=== PATIENT | female | born 1965 | race Caucasian/White ===

== ENCOUNTER 2018-06-04 20:42 | Emergency (ER) | payer OTHER ==
[~2018-06-04] VITALS: Ht 149.9 cm; Wt 65.8 kg
[2018-06-04] MEDS ORDERED: LAMICTAL150 MG (21:02)
== END 2018-06-04 22:40 | disposition home or self-care (01) ==
LOC: ER 20:42
DX: S50.11XA Contusion of right forearm, initial encounter (principal); V49.9XXA Car occupant (driver) (passenger) injured in unspecified traffic accident, initial encounter; Y93.89 Activity, other specified; Y92.488 Other paved roadways as the place of occurrence of the external cause; Y99.8 Other external cause status

== ENCOUNTER 2019-08-31 16:02 | Emergency (ER) | payer OTHER ==
[~2019-08-31] VITALS: Ht 157.5 cm; Wt 59.0 kg
[~2019-08-31 16:02] MED LIST: LAMICTAL150 MG
[2019-08-31] MEDS ORDERED: LEVOTHYROXINE25 MCG (16:30)
== END 2019-08-31 20:08 | disposition home or self-care (01) ==
LOC: ER 16:02
DX: J15.7 Pneumonia due to Mycoplasma pneumoniae (principal); R51 Headache; J32.8 Other chronic sinusitis

== ENCOUNTER 2020-02-14 19:52 | Emergency (ER) | payer OTHER ==
[~2020-02-14] VITALS: Ht 160 cm; Wt 65.8 kg
[~2020-02-14 19:52] MED LIST changes: +LEVOTHYROXINE25 MCG
== END 2020-02-15 00:13 | disposition home or self-care (01) ==
LOC: ER 19:52
DX: R51 Headache (principal); R10.9 Unspecified abdominal pain; E86.0 Dehydration

== ENCOUNTER 2021-10-15 19:49 | Emergency (ER) | payer OTHER ==
[~2021-10-15] VITALS: Ht 149.9 cm; Wt 68.9 kg
[2021-10-15] MEDS ORDERED: SYNTHROID50 MCG PO (20:13)
[2021-10-15] MEDS ORDERED: NAPROXEN500 MG PO (22:58)
[2021-10-15] MEDS ORDERED: MUCINEX DM ER1 EAC1 PO (22:58)
[2021-10-15] MEDS ORDERED: AZITHROMYCIN500 MG PO (22:58)
[2021-10-15] MEDS ORDERED: FLONASE ALLERG9.9 ML NASAL (22:58)
== END 2021-10-15 23:01 | disposition home or self-care (01) ==
LOC: ER 19:49
DX: J06.9 Acute upper respiratory infection, unspecified (principal); J32.9 Chronic sinusitis, unspecified; E03.9 Hypothyroidism, unspecified

== ENCOUNTER 2022-08-02 09:32 | Emergency (ER) | payer OTHER ==
[~2022-08-02] VITALS: Ht 149.9 cm; Wt 68.0 kg
[~2022-08-02 09:32] MED LIST changes: +AZITHROMYCIN500 MG PO; +FLONASE ALLERG9.9 ML NASAL; +MUCINEX DM ER1 EAC1 PO; +NAPROXEN500 MG PO; +SYNTHROID50 MCG PO
[2022-08-02] MEDS ORDERED: CELEXA10 MG (09:37)
== END 2022-08-02 11:13 | disposition home or self-care (01) ==
LOC: ER 09:32
DX: M79.602 Pain in left arm (principal)

== ENCOUNTER 2023-03-23 12:09 | Emergency (ER) | payer OTHER ==
[~2023-03-23] VITALS: Ht 121.9 cm; Wt 70.3 kg
[~2023-03-23 12:09] MED LIST changes: +CELEXA10 MG
== END 2023-03-23 16:42 | disposition home or self-care (01) ==
LOC: ER 12:09
DX: R42 Dizziness and giddiness (principal); M62.830 Muscle spasm of back

== ENCOUNTER 2023-06-27 09:41 | Emergency (ER) | payer OTHER ==
[~2023-06-27] VITALS: Ht 149.9 cm; Wt 68.0 kg
[2023-06-27] MEDS ORDERED: LIPITOR20 MG PO (10:00)
[2023-06-27] MEDS ORDERED: GEMFIBROZIL600 MG PO (10:01)
[2023-06-27] MEDS ORDERED: FOSAMAX70 MG PO (10:01)
== END 2023-06-27 12:39 | disposition home or self-care (01) ==
LOC: ER 09:41
DX: M54.50 Low back pain, unspecified (principal)